=== PATIENT | female | born 1970 | race African-American/Black ===

== ENCOUNTER 2016-07-17 19:08 | Emergency (ER) | payer OTHER ==
[~2016-07-17] VITALS: Ht 165.1 cm; Wt 63.5 kg
[2016-07-17] MEDS ORDERED: KETOROLAC TROMETHAMINE 60 MG/2 ML VIAL IM ONE (19:30)
[2016-07-17 19:42] VITALS: BP_SYST 113
[2016-07-17 20:30] VITALS: BP_SYST 113
== END 2016-07-17 20:30 | disposition home or self-care (01) ==
LOC: SED 19:08
DX: M25.562 Pain in left knee (principal); G89.29 Other chronic pain
CPT/HCPCS: 73564; 96372; 99284; J1885

== ENCOUNTER 2018-06-09 21:22 | Emergency (ER) | payer BC, OTHER ==
[~2018-06-09] VITALS: Ht 165.1 cm; Wt 61.2 kg
[2018-06-09 21:29] VITALS: BP_SYST 126
[2018-06-09 22:11] VITALS: BP_SYST 121
== END 2018-06-09 22:11 | disposition home or self-care (01) ==
LOC: SED 21:22
DX: S09.90XA Unspecified injury of head, initial encounter (principal); R03.0 Elevated blood-pressure reading, without diagnosis of hypertension; W19.XXXA Unspecified fall, initial encounter; Y93.89 Activity, other specified; Y92.89 Other specified places as the place of occurrence of the external cause; Y99.8 Other external cause status
CPT/HCPCS: 99283